=== PATIENT | male | born 1990 | race Caucasian/White ===

== ENCOUNTER 2022-12-21 06:11 | Day surgery (SDC) | payer BC, SELFPAY ==
--- NOTE | 2022-12-21 06:21 | ANES.PREOP_ITS ---
General Info Date of Service Date Performed: 12/21/22 Height: 6 ft 4 in Weight: 106.594 kg Body Mass Index (BMI): 28.5 Surgical Procedure: Operation Date: 12/21/22 07:40 Proposed Procedure Side Surgeon p Vasectomy Kishor Segovia MD Meds Allergies and Home Medications Allergies Allergy/AdvReac Type Severity Reaction Status Date / Time amoxicillin Allergy Verified 12/21/22 06:22 Penicillins Allergy Verified 12/21/22 06:22 Home Medication Medication Instructions Recorded multivitamin 1 tab PO DAILY 12/20/22 Current Visit Medications: Current Medications Generic Name Dose Route Start Last Admin Trade Name Freq PRN Reason Stop Dose Admin Ringer's Solution 1,000 mls @ 80 mls/hr 12/21/22 06:00 IV 01/19/23 23:59 INFUSION KAMERON IV Miscellaneous Supplies 1 each 12/21/22 06:00 Iv Access IV 01/19/23 23:59 DIRECTED KAMERON Sodium Chloride 0 ml 12/21/22 06:00 Normal Saline Flush 10 Ml Syr IV 01/19/23 23:59 PRN PRN Sodium Chloride 0 ml 12/21/22 06:00 Normal Saline 10 Ml Vial IJ 01/19/23 23:59 DIRECTED PRN Sterile Water 0 ml 12/21/22 06:00 Water,Injection,Sterile 10 Ml Vial IJ 01/19/23 23:59 DIRECTED PRN PFSH Surgical History Surgical History History of ankle surgery Hx of hand surgery Tobacco Smoking/Tobacco Use Status: Former Tobacco Use Alcohol Alcohol Intake: current Alcohol intake frequency: a few times a week Alcohol type: beer Substance Use Substance use: Never Substance use type: does not use Vital Signs and Lab Results Vital Signs Most Recent Vital Signs in EMR: Temp Pulse Resp BP Pulse Ox 36.3 C L 54 L 16 105/65 99 12/21/22 06:23 12/21/22 06:23 12/21/22 06:23 12/21/22 06:23 12/21/22 06:23 Lab Results Blood Type / Crossmatch: No Data to Display Complete Blood Count: No Data to Display Complete Metabolic Panel: No Data to Display Liver Function Panel: No Data to Display Coagulation Panel: No Data to Display Cardiac Panel: No Data to Display Arterial Blood Gas: No Data to Display Venous Blood Gas: No Data to Display Pancreas Panel: 2 No Data to Display Thyroid Panel: No Data to Display Infectious Disease: No Data to Display Blood Cultures: No Data to Display Toxicology Panel: No Data to Display Anesthesia Assessment and Plan Anesthesia History Personal History: No History of Anesthesia Complications Family History: No Family History of Anesthesia Complications Exercise Tolerance Exercise Tolerance: Metabolic Equivalents>4 Cardiac & Pulmonary Exam Cardiac Exam: Normal S1/S2 Heart Sounds Pulmonary Exam: Clear Bilateral Breath Sounds Implantable Cardiac Device Does patient have a Pacemaker or an ICD?: No Airway Exam Known Difficult Airway: No Mallampati Class: 1 Mouth Opening: Normal (> 3cm) Thyromental Distance: Greater than 3 cm Neck Range of Motion: Full ROM Neck Circumference: Normal Teeth Condition: Normal Dentition ASA Classification ASA Score: ASA 2 Emergency Case?: No NPO Status NPO Status: NPO Clears >2 hours, Solids >8 hours Anesthesia Plan Resuscitation Status: Full Code Anesthesia Technique: General Anesthesia Airway Planned: Natural Airway Monitors Used: Standard Monitors Preoperative Comments:: 32 yo male for vasectomy. Sig PMHx: former smoker, occ EtOH. denies major.
[2022-12-21 06:23] VITALS: BP 105/65; PULSE 54; RESP 16; TEMP 36.3; O2SAT 99
[2022-12-21] MEDS: Lactated Ringers 1,000 ML 80 ML IV (06:46)
--- NOTE | 2022-12-21 06:55 | W.PM.HP.N ---
Date of service: 12/21/22 Time of Service: 06:55 Assessment and Plan Assessment and plan (1) Encounter for vasectomy: Status: Acute Assessment and plan: We will move ahead with the vasectomy. We reminded the patient that vasectomy's did not cause instant sterilization and he would need to provide a semen sample in about 12 weeks to ensure the absence of sperm. We discussed potential side effects including bleeding, infection, recanalization of the vas and chronic pain. History of Present Illness History of Present Illness Chief Complaint: Elective sterilization Narrative: This is a 32-year-old gentleman comes in for vasectomy. He and his partner have 2 children and is not interested in additional pregnancies. He has not had any previous scrotal surgery. He has no issues with wound healing or excessive bleeding. Review of Systems Narrative: No fevers or chills No vision change or dysphasia No diabetes or thyroid No shortness of breath, cough or hemoptysis No chest pain or palpitations No nausea, vomiting, hepatitis, ulcers, jaundice, diarrhea or constipation No seizures, strokes or peripheral neuropathy No bleeding disorders or anemia No gout PFSH All Active Problems (Updated 12/21/22 @ 07:00 by Kishor Segovia MD) Encounter for vasectomy (Acute) Surgical History History of ankle surgery Hx of hand surgery Social History Smoking/Tobacco Use Status: Former Tobacco Use Quit Date: 03/19/21 Smoking risk assessment performed?: Yes Alcohol Intake: current Alcohol Intake frequency: a few times a week Alcohol type: beer Drug use: Never Substance use type: does not use Housing: house Do you feel safe at home: Yes Do you feel safe in your relationship?: Yes Meds Allergies and Home Medications Allergies Allergy/AdvReac Type Severity Reaction Status Date / Time amoxicillin Allergy Verified 12/21/22 06:22 Penicillins Allergy Verified 12/21/22 06:22 Home Medications Medication Instructions Recorded Confirmed Type multivitamin 1 tab PO DAILY 12/20/22 12/21/22 History Exam Const General: cooperative and comfortable Neck Neck: supple Resp Effort & Inspection: normal respiratory effort Auscultation: clear to auscultation bilaterally Cardio Rate: regular rate Rhythm: regular rhythm GI Palpation: soft and no masses Neuro General: patient alert, patient awake and patient oriented x3 Results Last Vital Signs Temp 36.3 C L 12/21/22 06:23 Pulse 54 L 12/21/22 06:23 Resp 16 12/21/22 06:23 BP 105/65 12/21/22 06:23 Pulse Ox 99 12/21/22 06:23 Time Spent Time spent with Patient: <40 minutes Time was spent: other
[2022-12-21 07:06] VITALS: BMI 28.5
[2022-12-21] MEDS: Lidocaine 1% Pres-Free 30 ML VIAL (07:39)
[2022-12-21] MEDS: Bupivacaine 0.5% Pres-Free 30 ML VIAL (07:40)
--- NOTE | 2022-12-21 07:54 | W.PM.DSUDISC ---
Date of service: 12/21/22 Time of Service: 07:55 Discharge Plan Disposition Condition: Stable Discharge Details Reason For Visit: vasectomy Attending Provider: Kishor Segovia Primary Care Provider: Denise Hager Home Meds and New Rx's Prescriptions: No Action multivitamin Tablet 1 tab PO DAILY Discharge Instructions Additional Instructions: no lifting over 10 pounds for 48 hours no ejaculation for 7 days use OTC tylenol and Ibuprofen/Alleve for pain followup 3 months to deliver semen sample - does not need appt, just drop off specomen Activity:: see additional instructions Shower/Bathe:: 24 hours Diet:: As Tolerated DS: Diagnosis Discharge Diagnosis (1) Encounter for vasectomy: Status: Acute
[2022-12-21 07:55] VITALS: BP 120/80; PULSE 77; RESP 16; TEMP 36.3; O2SAT 96
--- NOTE | 2022-12-21 08:08 | W.ANESPOSTOP ---
Postoperative Evaluation Date, Time and Location Date Performed: 12/21/22 Time Performed: 08:08 Patient Location: Day Surgery Unit Vital Signs Most Recent Imported Vital Signs: Most Recent Vital Signs Temp Pulse Resp BP Pulse Ox 36.3 C L 77 16 120/80 96 12/21/22 07:55 12/21/22 07:55 12/21/22 07:55 12/21/22 07:55 12/21/22 07:55 Pain Score Most Recent Pain Score: Most Recent Pain Score Pain Level 0 12/21/22 07:55 Assessment Mental Status: Awake (Alert & Oriented to Patient Baseline) Airway and Respiratory Function: Patent airway with normal (patient baseline) respiratory exam Cardiovascular Function: Hemodynamically Stable Hydration Status: Adequately Hydrated Nausea & Vomiting: No Nausea or Vomiting Pain: Pt. Denies Any Pain Peripheral Nerve Block: Patient did not receive a nerve block
--- NOTE | 2022-12-21 08:13 | ROE_ITS ---
Date of service: 12/21/22 Time of Service: 08:13 Operative Note Operative Note DATE OF PROCEDURE: 12/21/22 PRE-OP DIAGNOSIS: Elective sterilization POST-OP DIAGNOSIS: same PROCEDURE: vasectomy SURGEON: Kishor Segovia ANESTHESIA TYPE: Local By Surgeon and General:No Airway Refer to Anesthesia Record ESTIMATED BLOOD LOSS: 0 PATHOLOGY: none sent COMPLICATIONS: None Patient was transported to: same day Patient's condition: stable Implants: none Indications: This is a 32-year-old gentleman who comes in for vasectomy. He does partner have 2 children and are not interested in additional pregnancies Findings: Normal anatomy Procedure Description: The patient was brought to the operating room on 12/21/2022. After successful induction of general anesthesia without intubation, he was placed in the supine position. His genitalia was prepped and draped. We began on his left side and isolated the vas deferens up against the scrotal skin. The skin was infiltrated with 1% lidocaine. The skin was opened using a scalpel free technique. The left vas deferens was grasped and a ring forceps. The vasa was dissected free from its surrounding adventitia. A 2 cm section of vas was excised. Each cut end of the vas was cauterized and the more proximal end was buried back beneath the adventitia using a simple interrupted 4-0 chromic suture. The same procedure was then performed on the patient's right side. Neither of the vas deferens specimens were sent to pathology. This is the current recommendation of the [employer]. Additional Marcaine was then injected into each incision. The skin was closed with Dermabond. He tolerated the procedure well with no complications.
[2022-12-21 08:23] VITALS: BP 112/73; PULSE 63; RESP 16; TEMP 36.6; O2SAT 98
== END 2022-12-21 08:45 | disposition home or self-care (01) ==
PROVIDERS: PCP Nurse Practitioner Primary Care; Visit Provider Urology
PROC: (CPT 55250; principal; 2022-12-21 07:30)
DX: Z30.2 Encounter for sterilization (principal)
CPT/HCPCS: 55250; J1885; J2001; J2250; J2405; J3010